=== PATIENT | male | born 1975 | race Caucasian/White ===

== ENCOUNTER 2024-04-13 05:39 | Day surgery (SDC) | payer BC ==
[2024-04-07 11:08] LABS: BASOPHILS % (AUTO) 0.5 % (0-1); EOSINOPHILS % (AUTO) 0.4 % (0-6); LYMPHOCYTES # (AUTO) 1.5 X10'3 (1.1-4.8); LYMPHOCYTES % (AUTO) 26.5 % (21-51); MEAN CORPUSCULAR HEMOGLOBIN 30.7 PG (27.0-31.0); MEAN CORPUSCULAR HGB CONC 35.4 g/dL (33.0-36.5); MEAN CORPUSCULAR VOLUME 86.5 FL (78-98); MEAN PLATELET VOLUME 7.8 FL (7.4-10.4); MONOCYTES # (AUTO) 0.4 X10'3 (0-0.9); MONOCYTES % (AUTO) 6.4 % (2-12); NEUTROPHILS # (AUTO) 3.6 X10'3 (1.8-7.7); NEUTROPHILS % (AUTO) 66.2 % (42-75); PRE OP HEMATOCRIT 38.7 % (42.0-52.0); PRE OP HEMOGLOBIN 13.7 g/dL (14.0-17.9); PRE OP PLATELET COUNT 209 X10'3 (140-440); PRE OP WHITE BLOOD COUNT 5.5 10'3 (4.8-10.8); RED BLOOD COUNT 4.47 X10'6 (4.70-6.10); RED CELL DISTRIBUTION WIDTH 12.8 % (11.5-14.5)
[2024-04-07 11:09] LABS: BILIRUBIN,URINE NEGATIVE (Neg); CLARITY,URINE CLEAR (Clear); COLOR,URINE YELLOW (Yellow); GLUCOSE, URINE NEGATIVE (Neg); KETONES,URINE NEGATIVE (Neg); LEUKOCYTE ESTERASE ,URINE NEGATIVE (Neg); NITRITES, URINE NEGATIVE (Neg); OCCULT BLOOD,URINE NEGATIVE (Neg); PH,URINE 6.5 (4.8-8.0); PROTEIN,URINE NEGATIVE (Neg); UROBILINOGEN,URINE 0.2 E.U/dL (0.2-1.0)
[2024-04-07 11:16] LABS: UA COLLECTION TYPE CLN CATCH MIDSTREAM
[2024-04-07 11:17] LABS: ALBUMIN 4.2 G/DL (3.4-5.0); ALBUMIN/GLOBULIN RATIO 1.4 (1.1-1.5); ALKALINE PHOSPHATASE 51 IU/L (46-116); BLOOD UREA NITROGEN 21 MG/DL (7-18); BUN/CREATININE RATIO 19.8 (10.0-20.0); CALCIUM 9.1 MG/DL (8.5-10.1); CHLORIDE 103 MMOL/L (99-107); CREATININE 1.06 MG/DL (0.60-1.10); PRE OP ALT 31 U/L (30-65); PRE OP ANION GAP 8 (8-16); PRE OP AST 18 U/L (10-37); PRE OP BILIRUB, TOTAL 0.7 MG/DL (0.0-1.0); PRE OP GLUCOSE 142 MG/DL (70-104); PRE OP POTASSIUM 4.1 MMOL/L (3.4-5.1); PRE OP SODIUM 140 MMOL/L (135-145); TOTAL CARBON DIOXIDE 29.4 MMOL/L (24-32); TOTAL PROTEIN 7.2 G/DL (6.4-8.2); eGFR 75 ML/MIN
[~2024-04-13] VITALS: Ht 177.8 cm; Wt 75.6 kg
[2024-04-13] VITALS (8 sets, daily range): BP systolic 121–147; BP diastolic 83–105; PULSE 59–73; RESP 10–16; TEMP 97.9; O2SAT 96–100
[~2024-04-13 05:39] MED LIST: METF-900 PO; ROSU20TA73 PO; TIRZ5PEN SUBCUT
[2024-04-13] MEDS: cefazolin 2gm/D5W 100mL 100 ML IV ONE (05:53)
[2024-04-13] MEDS: famotidine 20mg tablet PO ONE (06:02)
[2024-04-13] MEDS: ringers solution, lacted 1,000 ML IV SCH (06:03)
[2024-04-13] MEDS ORDERED: sevoflurane 250ml liquid IH ONE (07:12)
[2024-04-13] MEDS ORDERED: fentaNYL/PF 50MCG/1 ML 2ML syringe ONE (07:20)
[2024-04-13] MEDS ORDERED: midazolam 1 mg/ML 2ml injection ONE (07:20)
[2024-04-13] MEDS ORDERED: LIDOcaine 2% (20mg/ml) 5ml vial ONE (07:26)
[2024-04-13] MEDS ORDERED: propofol inj 20 ML IV ONE (07:26)
[2024-04-13] MEDS ORDERED: morphine 4 MG/ML inj SYRINge IV PRN (07:35)
[2024-04-13] MEDS ORDERED: meperidine/PF 25mg/ml syringe IV PRN ×3 (07:35)
[2024-04-13] MEDS ORDERED: enalaprilat dihydrate 2.5mg/2ml vial IV PRN (07:35)
[2024-04-13] MEDS ORDERED: morphine 2 MG/ML inj. syringe IV PRN (07:35)
[2024-04-13] MEDS ORDERED: ondansetron/PF 4mg/2ml inj IV PRN (07:35)
[2024-04-13] MEDS ORDERED: ringers solution, lacted 1,000 ML IV SCH (07:35)
[2024-04-13] MEDS ORDERED: proCHLORperazine 10 MG/2 ml inj IV PRN (07:35)
[2024-04-13] MEDS ORDERED: labetalol 20mg/4ml (5mg/ml) syringe IV PRN (07:35)
[2024-04-13] MEDS ORDERED: methylPREDNISolone acetate 80mg/ml inj**IM only ONE (07:37)
[2024-04-13] MEDS ORDERED: ondansetron/PF 4mg/2ml inj ONE (07:47)
[2024-04-13] MEDS: bacitracin 15gm ointment TP ONE (10:11)
[2024-04-13] MEDS: BUPIVAcaine 2.5mg/ml inj 50ml vial (contains preservative) ONE (10:12)
[2024-04-13] MEDS: dexamethasone sod phosphate 4mg/ml inj. PO ONE (10:14)
== END 2024-04-13 09:11 | disposition home or self-care (01) ==
LOC: PAS 05:39
PROVIDERS: ATTEND Podiatrist Foot & Ankle Surgery
DX: G57.82 Other specified mononeuropathies of left lower limb (principal); E11.9 Type 2 diabetes mellitus without complications; E78.00 Pure hypercholesterolemia, unspecified; Z79.82 Long term (current) use of aspirin; Z79.84 Long term (current) use of oral hypoglycemic drugs; Z79.891 Long term (current) use of opiate analgesic; Z79.899 Other long term (current) drug therapy
CPT/HCPCS: 28080; 36415; 80053; 81003; 82948; 85025; 93005; A6223; J0690; J1010; J1100; J2250; J2405; J2704; J3010; J3490; J7030; J7120; Z7506; Z7512; A4215; A4618; A6449; A7000